=== PATIENT | female | born 1945 | race Caucasian/White ===

== ENCOUNTER → 2016-04-28 | Emergency (ER) | payer MEDICARE, MEDICAID ==
[~2016-04-28] MED LIST: Benzonatate 100 MG CAP ONE
== END ==
LOC: BURERS 17:07
DX: B34.9 Viral infection, unspecified (principal); I10 Essential (primary) hypertension; E11.9 Type 2 diabetes mellitus without complications; E03.9 Hypothyroidism, unspecified; E78.5 Hyperlipidemia, unspecified; Z79.84 Long term (current) use of oral hypoglycemic drugs; Z79.899 Other long term (current) drug therapy
CPT/HCPCS: 99283

== ENCOUNTER 2016-05-16 18:45 | Emergency (ER) | payer MEDICARE, MEDICAID ==
[2016-05-16] MEDS ORDERED: HYDROcodone/Acetaminophen 5/325 mg Tablet ONE (19:20)
--- NOTE | 2016-05-16 22:18 | RAD ---
LEFT HIP TWO VIEWS: Date: 05-16-16 FINDINGS: No fracture, dislocation, or disc space narrowing was seen. There are no significant arthritic thapa ges. The adjacent pubic ring appears intact. IMPRESSION: No acute finding. POS: HOME
--- NOTE | 2016-05-16 23:17 | RAD ---
LUMBAR SPINE THREE VIEWS: Date: 05-16-16 A significant S-shaped lumbar scoliosis is present. No fracture was seen. Degenerative disc diseas e is present at multiple levels, especially L5-S1, L1-2, T12-L1, T11-12, T10-11, and T8-9. The SI j oints are difficult to evaluate due to overlying bowel and fecal material. An oblong density to the right of the L1-2 interspace may just be fecal material in bowel, as I see no such findings on the lateral view. IMPRESSION: Scoliosis with moderate to severe multilevel degenerative disc disease. POS: HOME
== END 2016-05-16 20:20 | disposition home or self-care (01) ==
LOC: BURERS 18:45
DX: S33.5XXA Sprain of ligaments of lumbar spine, initial encounter (principal); E11.9 Type 2 diabetes mellitus without complications; E78.5 Hyperlipidemia, unspecified; I10 Essential (primary) hypertension; Z79.84 Long term (current) use of oral hypoglycemic drugs; Z79.899 Other long term (current) drug therapy; W10.9XXA Fall (on) (from) unspecified stairs and steps, initial encounter
CPT/HCPCS: 72100

== ENCOUNTER 2016-05-31 10:15 | Outpatient (CLI) | payer MEDICARE, MEDICAID | END 2016-05-31 10:16 | disposition home or self-care (01) | LOC: HPCALD 10:15 | PROVIDERS: ATTEND Family Medicine | DX: E03.9 Hypothyroidism, unspecified (principal) | CPT/HCPCS: 36415; 84443 ==

== ENCOUNTER 2016-07-26 09:34 | Outpatient (CLI) | payer MEDICARE, MEDICAID | END 2016-07-26 09:35 | disposition home or self-care (01) | LOC: BURLAB 09:34 | PROVIDERS: ATTEND Physician Assistant Medical | DX: K29.70 Gastritis, unspecified, without bleeding (principal); B96.81 Helicobacter pylori [H. pylori] as the cause of diseases classified elsewhere | CPT/HCPCS: 87338 ==

== ENCOUNTER 2016-11-19 11:52 | Outpatient (CLI) | payer MEDICARE, MEDICAID ==
[2016-11-19 12:56] LABS: ALT (SGPT) 31 U/L (8-55); AST (SGOT) 39 U/L (5-34); Albumin 3.8 g/dL (3.4-4.8); Alkaline Phosphatase 126 U/L (40-150); Anion Gap 13 mmol/L (10-20); BUN (Urea Nitrogen) 12 mg/dL (9.8-20.1); Bilirubin, Total 0.8 mg/dL (0.2-1.2); Calc. Creatinine Clearance 0 mL/min (70-130); Carbon Dioxide 27 mmol/L (23-31); Chloride 105 mmol/L (98-107); Cholesterol 109 mg/dl (< 200 Desired); Estimated GFR-MDRD 65; Globulin 2.9 g/dL (2.4-3.5); Glucose 133 mg/dL (80-115); HDL Cholesterol 36 mg/dL (>60 Neg Risk); LDL Cholesterol, Calculated 53 mg/dL; Potassium 4.2 mmol/L (3.5-5.1); Protein, Total 6.7 g/dL (6.0-8.3); Sodium 141 mmol/L (136-145); Triglycerides 100 mg/dL (Less than 150)
[2016-11-19 13:09] LABS: Hemoglobin A1c 6.2 % (4.0-6.0)
[2016-11-19 14:11] LABS: #Eosinphils 0.1 thou/uL (0.0-0.7); #Monocytes 0.4 thou/uL (0.11-0.59); #Neutrophils 4.9 thou/uL (1.40-6.50); %Basophils 0.4 % (0.0-1.0); %Eosinophils 1.9 % (0.0-10.0); %Lymphocytes 15.8 % (21.0-51.0); %Monocytes 6.7 % (0.0-10.0); %Neutrophils 75.1 % (42.0-75.0); Hemoglobin 12.5 g/dL (12.0-16.0); Mean Corpuscular HGB CONC 31.8 g/dL (32.0-36.0); Mean Platelet Volume 5.7 fL (7.4-10.4); Platelet Count 113 thou/uL (130-400); RBC Distribution Width 14.5 % (11.5-14.5); Red Blood Cell (RBC) Count 4.47 mill/uL (4.20-5.40); White Blood Cell (WBC) Count 6.6 thou/uL (4.8-10.8)
[2016-11-19 14:35] LABS: MDiff Complete? YES; Manual Diff?? NO
== END 2016-11-19 11:53 | disposition home or self-care (01) ==
LOC: HPCALD 11:52
PROVIDERS: ATTEND Family Medicine
DX: E78.2 Mixed hyperlipidemia (principal); E03.9 Hypothyroidism, unspecified; E11.9 Type 2 diabetes mellitus without complications
CPT/HCPCS: 36415; 80053; 80061; 83036; 84443; 85025

== ENCOUNTER 2016-11-26 08:58 | Outpatient (CLI) | payer MEDICARE, MEDICAID ==
--- NOTE | 2016-11-26 17:00 | ULT ---
RIGHT UPPER QUADRANT ULTRASOUND: 11/26/16 Ultrasonography of the right upper quadrant was performed for evaluation of elevated liver function tests. The liver is seen poorly due to bowel gas. It is mildly enlarged, measuring 17 cm in oblique sagitta l dimension. No masses or dilated ducts were appreciated. Portal venous flow seems to be towards the liver. The gallbladder contains a large gallstone in the fundus. The wall is slightly thick at 5 mm the common bile duct is borderline in caliber at 6 mm. The right kidney was 10.3 cm long and appear ed normal. The head and proximal body of the pancreas appear normal, but the more distal portions we re not seen well. IMPRESSION: 1. Mild hepatomegaly. 2. Gallstone with slight wall thickening. 3. Borderline size of common bile duct. POS: HOME
== END 2016-11-26 08:59 | disposition home or self-care (01) ==
LOC: BURULT 08:58
PROVIDERS: ATTEND Family Medicine
DX: D69.6 Thrombocytopenia, unspecified (principal); R74.0 Nonspecific elevation of levels of transaminase and lactic acid dehydrogenase [LDH]; R16.0 Hepatomegaly, not elsewhere classified; K80.80 Other cholelithiasis without obstruction
CPT/HCPCS: 76705; 87338

== ENCOUNTER 2019-01-25 12:30 | Outpatient (CLI) | payer MEDICARE, MEDICAID ==
[2019-01-25 16:56] LABS: #Eosinphils 0.1 thou/uL (0.0-0.7); #Lymphocytes 1.1 thou/uL (1.20-3.40); #Monocytes 0.6 thou/uL (0.11-0.59); %Basophils 0.2 % (0.0-1.0); %Eosinophils 1.3 % (0.0-10.0); %Lymphocytes 16.4 % (21.0-51.0); %Monocytes 8.6 % (0.0-10.0); %Neutrophils 73.6 % (42.0-75.0); Hemoglobin 10.8 g/dL (12.0-16.0); Mean Corpuscular Hemoglobin 28.2 pg (27.0-31.0); Mean Platelet Volume 9.1 fL (7.4-10.4); Platelet Count 84 thou/uL (130-400); RBC Distribution Width 16.9 % (11.5-14.5); Red Blood Cell (RBC) Count 3.83 mill/uL (4.20-5.40); White Blood Cell (WBC) Count 6.8 thou/uL (4.8-10.8)
[2019-01-25 16:57] LABS: ALT (SGPT) 16 U/L (8-55); AST (SGOT) 27 U/L (5-34); Albumin 4.1 g/dL (3.4-4.8); Alkaline Phosphatase 139 U/L (40-110); Anion Gap 14 mmol/L (10-20); BUN (Urea Nitrogen) 17 mg/dL (9.8-20.1); Bilirubin, Total 0.8 mg/dL (0.2-1.2); Calc. Creatinine Clearance 0 mL/min (70-130); Calcium 10.3 mg/dL (7.8-10.44); Carbon Dioxide 19 mmol/L (23-31); Chloride 110 mmol/L (98-107); Estimated GFR-MDRD 63; Globulin 3.1 g/dL (2.4-3.5); Glucose 71 mg/dL (83-110); Magnesium 1.6 mg/dL (1.6-2.6); Potassium 3.7 mmol/L (3.5-5.1); Protein, Total 7.2 g/dL (6.0-8.3); Sodium 139 mmol/L (136-145)
--- NOTE | 2019-01-25 17:39 | RAD ---
CHEST TWO VIEWS: 01/25/19 Comparison is made with a 12/30/18 study. The heart is upper normal to slightly enlarged, but no dif ferent than before. Congestion and effusion seen previously have all cleared. The lungs are now clear . At most, there may even most minor prominence of the upper lobe vessels, but there is certainly no sign of pneumonia at the moment. IMPRESSION: Overall improvement since the 12/30/18 study. POS: HOME
== END 2019-01-25 12:31 | disposition home or self-care (01) ==
LOC: BURRAD 12:30
PROVIDERS: ATTEND Family Medicine
DX: I50.32 Chronic diastolic (congestive) heart failure (principal); D64.9 Anemia, unspecified; E83.42 Hypomagnesemia; J18.9 Pneumonia, unspecified organism; J96.01 Acute respiratory failure with hypoxia; J44.1 Chronic obstructive pulmonary disease with (acute) exacerbation; B95.5 Unspecified streptococcus as the cause of diseases classified elsewhere
CPT/HCPCS: 36415; 71046; 80053; 83735; 83880; 85025

== ENCOUNTER 2020-10-21 14:13 | Inpatient (IN) | payer OTHER, MEDICARE, MEDICAID ==
[2020-10-21] MEDS ORDERED: Ondansetron ODT 4 MG TAB ONE ×3 (14:15→15:44)
[2020-10-21] MEDS ORDERED: Morphine 4 MG/ML VIAL ONE (15:16)
[2020-10-21] MEDS ORDERED: Ondansetron PF 4 MG/2 ML Vial ONE (15:42)
[2020-10-21] MEDS ORDERED: HYDROcodone/Acetaminophen 5/325 mg Tablet ONE (15:58)
[2020-10-21] MEDS ORDERED: traMADol HCl 50 MG TAB ONE (15:59)
[2020-10-21 17:06] LABS: #Lymphocytes 0.5 thou/uL (1.20-3.40); #Monocytes 0.3 thou/uL (0.11-0.59); #Neutrophils 5.3 thou/uL (1.40-6.50); %Basophils 0.5 % (0.0-1.0); %Eosinophils 0.3 % (0.0-10.0); %Lymphocytes 7.5 % (21.0-51.0); %Monocytes 4.9 % (0.0-10.0); %Neutrophils 86.7 % (42.0-75.0); ALT (SGPT) 17 U/L (8-55); AST (SGOT) 19 U/L (5-34); Albumin 3.3 g/dL (3.4-4.8); Alkaline Phosphatase 142 U/L (40-110); Anion Gap 12 mmol/L (10-20); BUN (Urea Nitrogen) 21 mg/dL (9.8-20.1); Bilirubin, Total 1.3 mg/dL (0.2-1.2); Calc. Creatinine Clearance 0 mL/min (70-130); Calcium 9.8 mg/dL (7.8-10.44); Carbon Dioxide 21 mmol/L (23-31); Chloride 110 mmol/L (98-107); Globulin 3.3 g/dL (2.4-3.5); Glucose 269 mg/dL (83-110); Hemoglobin 10.2 g/dL (12.0-16.0); Large Platelets SLIGHT; MDiff Complete? YES; Mean Corpuscular HGB CONC 30.8 g/dL (32.0-36.0); Mean Corpuscular Hemoglobin 26.9 pg (27.0-31.0); Mean Corpuscular Volume 87.3 fL (78.0-98.0); Mean Platelet Volume 7.7 fL (7.4-10.4); Platelet Count 65 thou/uL (130-400); Potassium 4.6 mmol/L (3.5-5.1); Protein, Total 6.6 g/dL (5.8-8.1); Sodium 138 mmol/L (136-145); White Blood Cell (WBC) Count 6.1 thou/uL (4.8-10.8)
[2020-10-21] MEDS ORDERED: Acetaminophen 500 MG TAB PO PRN (19:22)
[2020-10-21] MEDS: Atorvastatin Calcium 10 MG TAB PO SCH (21:21)
[2020-10-22 01:13] LABS: SARS-CoV-2 NAA Rapid Test Not Detected (NotDetected)
[2020-10-22] MEDS: Levothyroxine Sodium 100 MCG TAB PO SCH (05:52)
[2020-10-22] MEDS: traMADol HCl 50 MG TAB PO PRN (08:36)
[2020-10-22] MEDS: Lisinopril 10 MG TAB PO SCH (08:37)
[2020-10-22] MEDS: Furosemide 40 MG TAB PO SCH (08:38)
[2020-10-22] MEDS: Potassium Chloride 20 MEQ TAB PO SCH (08:39)
[2020-10-22] MEDS: Enoxaparin Sodium 40 MG/0.4 ML SYRINGE SC SCH (08:40)
[2020-10-22] MEDS: VERAPAMIL HCL 180 MG PO SCH (08:41)
[2020-10-22] MEDS: ACETAZOLAMIDE 250 MG PO SCH (08:41)
[2020-10-22] MEDS: Atorvastatin Calcium 10 MG TAB PO SCH (22:44)
[2020-10-22] MEDS ORDERED: Dextrose 5% in Water 1,000 ML IV PRN (23:45)
[2020-10-22] MEDS ORDERED: Dextrose 50% Abboject 50 ML SYRINGE IVP PRN (23:45)
[2020-10-22] MEDS: Insulin Regular 300 UNITS/3 ML VIAL SC PRN (23:57)
[2020-10-23] MEDS: traMADol HCl 50 MG TAB PO PRN ×2 (04:49→21:06)
[2020-10-23] MEDS: Levothyroxine Sodium 100 MCG TAB PO SCH (04:51)
[2020-10-23] MEDS: Insulin Regular 300 UNITS/3 ML VIAL SC PRN ×4 (08:33→21:07)
[2020-10-23] MEDS: Potassium Chloride 20 MEQ TAB PO SCH (08:44)
[2020-10-23] MEDS: Lisinopril 10 MG TAB PO SCH (08:45)
[2020-10-23] MEDS: Furosemide 40 MG TAB PO SCH (08:45)
[2020-10-23] MEDS: Enoxaparin Sodium 40 MG/0.4 ML SYRINGE SC SCH ×2 (08:46→09:03)
[2020-10-23] MEDS: ACETAZOLAMIDE 250 MG PO SCH (09:41)
[2020-10-23] MEDS: VERAPAMIL HCL 180 MG PO SCH (09:42)
[2020-10-23 14:52] LABS: Bilirubin Negative (Negative); Blood, Urine Trace (Negative); Clarity Cloudy (Clear); Glucose, Urine (Dipstick) >=1000 mg/dL (Negative); Ketone, Urine Negative (Negative); Leukocyte Small (Negative); Nitrite Negative (Negative); Protein, Urine (Dipstick) Negative (Neg-Trace)
[2020-10-23 15:06] LABS: RBC/HPF 0-3 HPF (0-3); WBC/HPF Greater than 50 HPF (0-3)
[2020-10-23 15:07] LABS: Bacteria/HPF 3+ HPF (None Seen); Epithelial Cast 0-3 LPF (None Seen)
[2020-10-23] MEDS: Atorvastatin Calcium 10 MG TAB PO SCH (21:06)
[2020-10-24] MEDS: Levothyroxine Sodium 100 MCG TAB PO SCH (05:32)
[2020-10-24 05:57] LABS: Hemoglobin 9.2 g/dL (12.0-16.0); Platelet Count 50 thou/uL (130-400)
[2020-10-24] MEDS: Insulin Regular 300 UNITS/3 ML VIAL SC PRN ×4 (09:10→20:35)
[2020-10-24] MEDS: Enoxaparin Sodium 40 MG/0.4 ML SYRINGE SC SCH (09:12)
[2020-10-24] MEDS: Furosemide 40 MG TAB PO SCH (09:13)
[2020-10-24] MEDS: Potassium Chloride 20 MEQ TAB PO SCH (09:13)
[2020-10-24] MEDS: Lisinopril 10 MG TAB PO SCH (09:15)
[2020-10-24] MEDS: traMADol HCl 50 MG TAB PO PRN (10:28)
[2020-10-24] MEDS: VERAPAMIL HCL 180 MG PO SCH (10:33)
[2020-10-24] MEDS: ACETAZOLAMIDE 250 MG PO SCH (10:33)
[2020-10-24] MEDS: Atorvastatin Calcium 10 MG TAB PO SCH (20:29)
[2020-10-24] MEDS: Ciprofloxacin 500 MG TAB PO SCH (20:30)
[2020-10-25] MEDS: Ciprofloxacin 500 MG TAB PO SCH ×2 (06:00→20:50)
[2020-10-25] MEDS: Levothyroxine Sodium 100 MCG TAB PO SCH (06:00)
[2020-10-25] MEDS: Enoxaparin Sodium 40 MG/0.4 ML SYRINGE SC SCH (08:19)
[2020-10-25] MEDS: Insulin Regular 300 UNITS/3 ML VIAL SC PRN ×3 (08:20→20:54)
[2020-10-25] MEDS: Lisinopril 10 MG TAB PO SCH (08:21)
[2020-10-25] MEDS: Furosemide 40 MG TAB PO SCH (08:22)
[2020-10-25] MEDS: ACETAZOLAMIDE 250 MG PO SCH (08:23)
[2020-10-25] MEDS: VERAPAMIL HCL 180 MG PO SCH (08:24)
[2020-10-25] MEDS: Polyethylene Glycol 3350 17 GM Packet PO PRN (09:15)
[2020-10-25] MEDS: Potassium Chloride 20 MEQ TAB PO SCH (09:16)
[2020-10-25] MEDS: traMADol HCl 50 MG TAB PO PRN (17:46)
[2020-10-25] MEDS: Atorvastatin Calcium 10 MG TAB PO SCH (20:50)
[2020-10-25] MEDS ORDERED: Lantus 1000 UNITS/10 ML VIAL SC SCH (21:00)
[2020-10-26] MEDS: Ciprofloxacin 500 MG TAB PO SCH ×2 (05:00→20:40)
[2020-10-26] MEDS: Levothyroxine Sodium 100 MCG TAB PO SCH (05:00)
[2020-10-26] MEDS: Enoxaparin Sodium 40 MG/0.4 ML SYRINGE SC SCH (09:15)
[2020-10-26] MEDS: Lisinopril 10 MG TAB PO SCH (09:17)
[2020-10-26] MEDS: Furosemide 40 MG TAB PO SCH (09:17)
[2020-10-26] MEDS: Potassium Chloride 20 MEQ TAB PO SCH (09:17)
[2020-10-26] MEDS: Insulin Regular 300 UNITS/3 ML VIAL SC PRN ×4 (09:18→20:43)
[2020-10-26] MEDS: ACETAZOLAMIDE 250 MG PO SCH (09:29)
[2020-10-26] MEDS: VERAPAMIL HCL 180 MG PO SCH (09:29)
[2020-10-26] MEDS: Polyethylene Glycol 3350 17 GM Packet PO PRN (10:56)
[2020-10-26] MEDS: traMADol HCl 50 MG TAB PO PRN (19:23)
[2020-10-26] MEDS: Atorvastatin Calcium 10 MG TAB PO SCH (20:40)
[2020-10-26] MEDS: Lantus 1000 UNITS/10 ML VIAL SC SCH (20:41)
[2020-10-27 05:36] LABS: Hemoglobin 9.3 g/dL (12.0-16.0); Platelet Count 67 thou/uL (130-400)
[2020-10-27] MEDS ORDERED: Ciprofloxacin 500 MG TAB ONE (05:42)
[2020-10-27] MEDS: Levothyroxine Sodium 100 MCG TAB PO SCH (05:47)
[2020-10-27] MEDS: Ciprofloxacin 500 MG TAB PO SCH ×2 (05:47→22:38)
[2020-10-27] MEDS: Lisinopril 10 MG TAB PO SCH (09:12)
[2020-10-27] MEDS: Furosemide 40 MG TAB PO SCH (09:12)
[2020-10-27] MEDS: Potassium Chloride 20 MEQ TAB PO SCH (09:12)
[2020-10-27] MEDS: Insulin Regular 300 UNITS/3 ML VIAL SC PRN ×4 (09:13→22:42)
[2020-10-27] MEDS: Enoxaparin Sodium 40 MG/0.4 ML SYRINGE SC SCH (09:13)
[2020-10-27] MEDS: traMADol HCl 50 MG TAB PO PRN (10:42)
[2020-10-27] MEDS: VERAPAMIL HCL 180 MG PO SCH (10:43)
[2020-10-27] MEDS: ACETAZOLAMIDE 250 MG PO SCH (10:43)
[2020-10-27] MEDS: Atorvastatin Calcium 10 MG TAB PO SCH (22:38)
[2020-10-27] MEDS: Lantus 1000 UNITS/10 ML VIAL SC SCH (22:39)
[2020-10-28] MEDS: Ciprofloxacin 500 MG TAB PO SCH ×2 (05:24→20:33)
[2020-10-28] MEDS: Levothyroxine Sodium 100 MCG TAB PO SCH (05:24)
[2020-10-28] MEDS: Lisinopril 10 MG TAB PO SCH (08:58)
[2020-10-28] MEDS: Furosemide 40 MG TAB PO SCH (08:58)
[2020-10-28] MEDS: Enoxaparin Sodium 40 MG/0.4 ML SYRINGE SC SCH (08:58)
[2020-10-28] MEDS: ACETAZOLAMIDE 250 MG PO SCH (08:59)
[2020-10-28] MEDS: Potassium Chloride 20 MEQ TAB PO SCH (08:59)
[2020-10-28] MEDS: VERAPAMIL HCL 180 MG PO SCH (08:59)
[2020-10-28] MEDS: Insulin Regular 300 UNITS/3 ML VIAL SC PRN ×4 (09:01→20:34)
[2020-10-28] MEDS: traMADol HCl 50 MG TAB PO PRN (09:01)
[2020-10-28] MEDS: Atorvastatin Calcium 10 MG TAB PO SCH (20:33)
[2020-10-28] MEDS: Lantus 1000 UNITS/10 ML VIAL SC SCH (20:34)
[2020-10-29] MEDS: Ciprofloxacin 500 MG TAB PO SCH (05:16)
[2020-10-29] MEDS: Levothyroxine Sodium 100 MCG TAB PO SCH (05:16)
[2020-10-29] MEDS: Lisinopril 10 MG TAB PO SCH (08:14)
[2020-10-29] MEDS: Furosemide 40 MG TAB PO SCH (08:14)
[2020-10-29] MEDS: Potassium Chloride 20 MEQ TAB PO SCH (08:14)
[2020-10-29] MEDS: VERAPAMIL HCL 180 MG PO SCH (08:16)
[2020-10-29] MEDS: ACETAZOLAMIDE 250 MG PO SCH (08:16)
[2020-10-29] MEDS: Insulin Regular 300 UNITS/3 ML VIAL SC PRN ×4 (08:16→21:14)
[2020-10-29] MEDS: traMADol HCl 50 MG TAB PO PRN (12:15)
[2020-10-29] MEDS: Enoxaparin Sodium 40 MG/0.4 ML SYRINGE SC SCH (12:16)
[2020-10-29] MEDS: Lantus 1000 UNITS/10 ML VIAL SC SCH (21:11)
[2020-10-29] MEDS: Atorvastatin Calcium 10 MG TAB PO SCH (21:12)
[2020-10-30 05:07] LABS: Platelet Count 65 thou/uL (130-400)
[2020-10-30] MEDS: Levothyroxine Sodium 100 MCG TAB PO SCH (05:27)
[2020-10-30] MEDS: Potassium Chloride 20 MEQ TAB PO SCH (09:15)
[2020-10-30] MEDS: Lisinopril 10 MG TAB PO SCH (09:15)
[2020-10-30] MEDS: Enoxaparin Sodium 40 MG/0.4 ML SYRINGE SC SCH (09:15)
[2020-10-30] MEDS: Furosemide 40 MG TAB PO SCH (09:16)
[2020-10-30] MEDS: VERAPAMIL HCL 180 MG PO SCH (09:21)
[2020-10-30] MEDS: ACETAZOLAMIDE 250 MG PO SCH (09:21)
[2020-10-30] MEDS: Insulin Regular 300 UNITS/3 ML VIAL SC PRN ×4 (09:22→21:46)
[2020-10-30] MEDS: traMADol HCl 50 MG TAB PO PRN (09:39)
[2020-10-30] MEDS: Atorvastatin Calcium 10 MG TAB PO SCH (21:46)
[2020-10-30] MEDS: Lantus 1000 UNITS/10 ML VIAL SC SCH (21:46)
[2020-10-31] MEDS: Levothyroxine Sodium 100 MCG TAB PO SCH (05:33)
[2020-10-31] MEDS: Potassium Chloride 20 MEQ TAB PO SCH (10:00)
[2020-10-31] MEDS: Lisinopril 10 MG TAB PO SCH (10:00)
[2020-10-31] MEDS: Enoxaparin Sodium 40 MG/0.4 ML SYRINGE SC SCH (10:00)
[2020-10-31] MEDS: Furosemide 40 MG TAB PO SCH (10:01)
[2020-10-31] MEDS: ACETAZOLAMIDE 250 MG PO SCH (10:06)
[2020-10-31] MEDS: VERAPAMIL HCL 180 MG PO SCH (10:08)
[2020-10-31] MEDS: Insulin Regular 300 UNITS/3 ML VIAL SC PRN ×4 (10:09→21:50)
[2020-10-31] MEDS: traMADol HCl 50 MG TAB PO PRN (14:01)
[2020-10-31] MEDS: Lantus 1000 UNITS/10 ML VIAL SC SCH (21:50)
[2020-10-31] MEDS: Atorvastatin Calcium 10 MG TAB PO SCH (21:50)
[2020-11-01] MEDS: Levothyroxine Sodium 100 MCG TAB PO SCH (05:31)
[2020-11-01] MEDS: Furosemide 40 MG TAB PO SCH (08:33)
[2020-11-01] MEDS: Insulin Regular 300 UNITS/3 ML VIAL SC PRN ×5 (08:33→22:16)
[2020-11-01] MEDS: Enoxaparin Sodium 40 MG/0.4 ML SYRINGE SC SCH (08:34)
[2020-11-01] MEDS: Potassium Chloride 20 MEQ TAB PO SCH (08:35)
[2020-11-01] MEDS: ACETAZOLAMIDE 250 MG PO SCH (08:36)
[2020-11-01] MEDS: VERAPAMIL HCL 180 MG PO SCH (08:37)
[2020-11-01] MEDS: Lisinopril 10 MG TAB PO SCH (08:40)
[2020-11-01] MEDS: Atorvastatin Calcium 10 MG TAB PO SCH (22:15)
[2020-11-01] MEDS: Lantus 1000 UNITS/10 ML VIAL SC SCH (22:16)
[2020-11-02] MEDS: Levothyroxine Sodium 100 MCG TAB PO SCH (05:03)
[2020-11-02 05:40] LABS: Hemoglobin 9.3 g/dL (12.0-16.0); Platelet Count 80 thou/uL (130-400)
[2020-11-02] MEDS: traMADol HCl 50 MG TAB PO PRN (09:26)
[2020-11-02] MEDS: Lisinopril 10 MG TAB PO SCH (09:28)
[2020-11-02] MEDS: Enoxaparin Sodium 40 MG/0.4 ML SYRINGE SC SCH (09:29)
[2020-11-02] MEDS: Potassium Chloride 20 MEQ TAB PO SCH (09:30)
[2020-11-02] MEDS: Furosemide 40 MG TAB PO SCH (09:33)
[2020-11-02] MEDS: VERAPAMIL HCL 180 MG PO SCH (09:34)
[2020-11-02] MEDS: ACETAZOLAMIDE 250 MG PO SCH (09:35)
[2020-11-02] MEDS: Insulin Regular 300 UNITS/3 ML VIAL SC PRN ×3 (12:24→20:37)
[2020-11-02] MEDS: Lantus 1000 UNITS/10 ML VIAL SC SCH (20:38)
[2020-11-02] MEDS: Atorvastatin Calcium 10 MG TAB PO SCH (20:38)
[2020-11-03] MEDS: Levothyroxine Sodium 100 MCG TAB PO SCH (05:32)
[2020-11-03] MEDS: Lisinopril 10 MG TAB PO SCH (08:49)
[2020-11-03] MEDS: Furosemide 40 MG TAB PO SCH (08:49)
[2020-11-03] MEDS: Enoxaparin Sodium 40 MG/0.4 ML SYRINGE SC SCH (08:56)
[2020-11-03] MEDS: Potassium Chloride 20 MEQ TAB PO SCH (08:56)
[2020-11-03] MEDS: Insulin Regular 300 UNITS/3 ML VIAL SC PRN ×4 (08:59→21:02)
[2020-11-03] MEDS: VERAPAMIL HCL 180 MG PO SCH (09:01)
[2020-11-03] MEDS: ACETAZOLAMIDE 250 MG PO SCH (09:01)
[2020-11-03] MEDS: traMADol HCl 50 MG TAB PO PRN ×2 (11:31→20:57)
[2020-11-03] MEDS: Lantus 1000 UNITS/10 ML VIAL SC SCH (20:56)
[2020-11-03] MEDS: Atorvastatin Calcium 10 MG TAB PO SCH (20:57)
[2020-11-04 01:19] VITALS: BMI 41.8
[2020-11-04] MEDS: Levothyroxine Sodium 100 MCG TAB PO SCH (05:21)
[2020-11-04] MEDS: Furosemide 40 MG TAB PO SCH (09:27)
[2020-11-04] MEDS: ACETAZOLAMIDE 250 MG PO SCH (09:28)
[2020-11-04] MEDS: Lisinopril 10 MG TAB PO SCH (09:28)
[2020-11-04] MEDS: Potassium Chloride 20 MEQ TAB PO SCH (09:28)
[2020-11-04] MEDS: Enoxaparin Sodium 40 MG/0.4 ML SYRINGE SC SCH (09:29)
[2020-11-04] MEDS: VERAPAMIL HCL 180 MG PO SCH (09:29)
[2020-11-04] MEDS: Insulin Regular 300 UNITS/3 ML VIAL SC PRN ×4 (09:30→23:11)
[2020-11-04] MEDS: traMADol HCl 50 MG TAB PO PRN (12:52)
[2020-11-04] MEDS: Lantus 1000 UNITS/10 ML VIAL SC SCH (23:10)
[2020-11-04] MEDS: Atorvastatin Calcium 10 MG TAB PO SCH (23:10)
[2020-11-05] MEDS: Levothyroxine Sodium 100 MCG TAB PO SCH (05:39)
[2020-11-05 05:59] LABS: Hemoglobin 9.9 g/dL (12.0-16.0); Platelet Count 72 thou/uL (130-400)
[2020-11-05] MEDS: VERAPAMIL HCL 180 MG PO SCH ×2 (08:24→12:23)
[2020-11-05] MEDS: Potassium Chloride 20 MEQ TAB PO SCH (08:28)
[2020-11-05] MEDS: Lisinopril 10 MG TAB PO SCH (08:28)
[2020-11-05] MEDS: Insulin Regular 300 UNITS/3 ML VIAL SC PRN ×4 (08:29→21:33)
[2020-11-05] MEDS: Enoxaparin Sodium 40 MG/0.4 ML SYRINGE SC SCH (08:29)
[2020-11-05] MEDS: traMADol HCl 50 MG TAB PO PRN ×2 (08:36→14:12)
[2020-11-05] MEDS: ACETAZOLAMIDE 250 MG PO SCH (12:24)
[2020-11-05] MEDS: Furosemide 20 MG TAB PO SCH (12:25)
[2020-11-05] MEDS: Atorvastatin Calcium 10 MG TAB PO SCH (20:59)
[2020-11-05] MEDS: Lantus 1000 UNITS/10 ML VIAL SC SCH (21:30)
[2020-11-06] MEDS: Levothyroxine Sodium 100 MCG TAB PO SCH (05:07)
[2020-11-06] MEDS: Potassium Chloride 20 MEQ TAB PO SCH (09:07)
[2020-11-06] MEDS: Enoxaparin Sodium 40 MG/0.4 ML SYRINGE SC SCH (09:07)
[2020-11-06] MEDS: Lisinopril 10 MG TAB PO SCH (09:07)
[2020-11-06] MEDS: Furosemide 20 MG TAB PO SCH (09:08)
[2020-11-06] MEDS: Insulin Regular 300 UNITS/3 ML VIAL SC PRN ×3 (09:20→17:39)
[2020-11-06] MEDS: ACETAZOLAMIDE 250 MG PO SCH (09:22)
[2020-11-06] MEDS: VERAPAMIL HCL 180 MG PO SCH (09:23)
[2020-11-06] MEDS: traMADol HCl 50 MG TAB PO PRN (18:36)
[2020-11-06 18:59] VITALS: BP 120/60; TEMP 98.1
== END 2020-11-06 19:00 | disposition home or self-care (01) | DRG 563 ==
LOC: BURERS 14:13 → BURMED 16:40
PROVIDERS: ADMIT Family Medicine; ATTEND Family Medicine
DX: S42.292A Other displaced fracture of upper end of left humerus, initial encounter for closed fracture (principal); Z68.41 Body mass index [BMI] 40.0-44.9, adult; N39.0 Urinary tract infection, site not specified; S76.012A Strain of muscle, fascia and tendon of left hip, initial encounter; W07.XXXA Fall from chair, initial encounter; E66.9 Obesity, unspecified; J44.9 Chronic obstructive pulmonary disease, unspecified; I11.0 Hypertensive heart disease with heart failure; I50.9 Heart failure, unspecified; E78.5 Hyperlipidemia, unspecified; D64.9 Anemia, unspecified; D69.6 Thrombocytopenia, unspecified; E03.9 Hypothyroidism, unspecified; S42.252A Displaced fracture of greater tuberosity of left humerus, initial encounter for closed fracture; I89.0 Lymphedema, not elsewhere classified; R53.81 Other malaise; Z20.822 Contact with and (suspected) exposure to COVID-19; E11.9 Type 2 diabetes mellitus without complications; B96.1 Klebsiella pneumoniae [K. pneumoniae] as the cause of diseases classified elsewhere; Z90.89 Acquired absence of other organs; Z98.890 Other specified postprocedural states; Z88.5 Allergy status to narcotic agent; Z88.0 Allergy status to penicillin; Z88.2 Allergy status to sulfonamides; Z88.8 Allergy status to other drugs, medicaments and biological substances; Z79.899 Other long term (current) drug therapy; Z85.41 Personal history of malignant neoplasm of cervix uteri; I25.2 Old myocardial infarction; Z86.718 Personal history of other venous thrombosis and embolism; Z98.51 Tubal ligation status
CPT/HCPCS: 36415; 36416; 70450; 71045; 72125; 80053; 81001; 82274; 82565; 85014; 85018; 85025; 85049; 87077; 87086; 87186; 96372; J1650; J1815; J2270; J2405; Q0162; U0002

== ENCOUNTER 2021-08-14 20:28 | Emergency (ER) | payer MEDICARE, OTHER ==
[2021-08-14 21:56] LABS: #Lymphocytes 0.6 thou/uL (1.20-3.40); #Monocytes 0.2 thou/uL (0.11-0.59); #Neutrophils 2.2 thou/uL (1.40-6.50); %Basophils 0.9 % (0.0-1.0); %Eosinophils 0.9 % (0.0-10.0); %Lymphocytes 19.1 % (21.0-51.0); %Monocytes 7.9 % (0.0-10.0); %Neutrophils 71.2 % (42.0-75.0); Hemoglobin 10.4 g/dL (12.0-16.0); Mean Corpuscular HGB CONC 32.1 g/dL (32.0-36.0); Mean Corpuscular Hemoglobin 28.4 pg (27.0-31.0); Mean Corpuscular Volume 88.6 fL (78.0-98.0); Mean Platelet Volume 7.5 fL (7.4-10.4); Platelet Count 46 thou/uL (130-400); RBC Distribution Width 16.9 % (11.5-14.5); Red Blood Cell (RBC) Count 3.66 mill/uL (4.20-5.40)
[2021-08-14 22:04] LABS: CRP (Inflammatory) 2.88 mg/dL (= or < 0.5)
[2021-08-14 22:06] LABS: ALT (SGPT) 12 U/L (8-55); AST (SGOT) 21 U/L (5-34); Albumin 3.8 g/dL (3.4-4.8); Alkaline Phosphatase 94 U/L (40-110); Anion Gap 14 mmol/L (10-20); BUN (Urea Nitrogen) 17 mg/dL (9.8-20.1); Bilirubin, Total 1.8 mg/dL (0.2-1.2); Calc. Creatinine Clearance 0 mL/min (70-130); Calcium 9.7 mg/dL (7.8-10.44); Carbon Dioxide 17 mmol/L (23-31); Chloride 115 mmol/L (98-107); Globulin 3.2 g/dL (2.4-3.5); Glucose 116 mg/dL (83-110); Sodium 142 mmol/L (136-145)
[2021-08-14 22:07] LABS: Bilirubin Negative (Negative); Blood, Urine Negative (Negative); Clarity Slightly Cloudy (Clear); Glucose, Urine (Dipstick) Negative (Negative); Ketone, Urine 15 mg/dL (Negative); Leukocyte Trace (Negative); Nitrite Positive (Negative); Protein, Urine (Dipstick) Negative (Neg-Trace); pH, Urine 5.5 (5.0-9.0)
[2021-08-14 22:11] LABS: Anisocytosis SLIGHT = 6-15 cells (100X) (0-5/hpf); MDiff Complete? YES; Platelet Morphology Comment Appears Decreased
[2021-08-14 22:14] LABS: Bacteria/HPF 4+ HPF (None Seen); RBC/HPF None Seen HPF (0-3); Squamous Epithelial None Seen HPF (0-3); WBC/HPF 0-3 HPF (0-3)
[2021-08-14] MEDS ORDERED: HYDROcodone/Acetaminophen 5/325 mg Tablet ONE (22:27)
== END 2021-08-14 22:15 | disposition short-term general hospital (02) ==
LOC: BURERS 20:28
DX: L03.115 Cellulitis of right lower limb (principal); I50.9 Heart failure, unspecified; E11.9 Type 2 diabetes mellitus without complications; J44.9 Chronic obstructive pulmonary disease, unspecified; M19.90 Unspecified osteoarthritis, unspecified site; E66.9 Obesity, unspecified; Z68.45 Body mass index [BMI] 70 or greater, adult; Z79.899 Other long term (current) drug therapy
CPT/HCPCS: 36415; 71045; 72100; 80053; 81003; 81015; 82550; 83605; 83880; 85025; 86140; 87040; 87077; 87086; 87186; 96374; J1956

== ENCOUNTER 2021-08-28 16:59 | Emergency (ER) | payer MEDICARE, OTHER ==
[2021-08-28 18:17] LABS: Bilirubin Negative (Negative); Blood, Urine Negative (Negative); Clarity Clear (Clear); Glucose, Urine (Dipstick) Negative (Negative); Ketone, Urine Negative (Negative); Leukocyte Negative (Negative); Nitrite Negative (Negative); Protein, Urine (Dipstick) Negative (Neg-Trace); Specific Gravity, Urine 1.025 (1.005-1.030); pH, Urine 5.5 (5.0-9.0)
[2021-08-28 18:20] LABS: ALT (SGPT) 19 U/L (8-55); AST (SGOT) 31 U/L (5-34); Albumin 3.3 g/dL (3.4-4.8); Alkaline Phosphatase 85 U/L (40-110); Anion Gap 15 mmol/L (10-20); BUN (Urea Nitrogen) 20 mg/dL (9.8-20.1); Bilirubin, Total 0.9 mg/dL (0.2-1.2); Calc. Creatinine Clearance 0 mL/min (70-130); Calcium 9.9 mg/dL (7.8-10.44); Carbon Dioxide 19 mmol/L (23-31); Chloride 111 mmol/L (98-107); Globulin 2.5 g/dL (2.4-3.5); Glucose 103 mg/dL (83-110); Potassium 4.5 mmol/L (3.5-5.1); Protein, Total 5.8 g/dL (5.8-8.1); Sodium 140 mmol/L (136-145)
[2021-08-28 18:22] LABS: #Eosinphils 0.1 thou/uL (0.0-0.7); #Lymphocytes 0.7 thou/uL (1.20-3.40); #Monocytes 0.3 thou/uL (0.11-0.59); #Neutrophils 2.2 thou/uL (1.40-6.50); %Basophils 0.8 % (0.0-1.0); %Monocytes 9.2 % (0.0-10.0); %Neutrophils 67.9 % (42.0-75.0); Anisocytosis SLIGHT = 6-15 cells (100X) (0-5/hpf); Hemoglobin 8.9 g/dL (12.0-16.0); MDiff Complete? YES; Mean Corpuscular HGB CONC 31.5 g/dL (32.0-36.0); Mean Corpuscular Hemoglobin 28.7 pg (27.0-31.0); Mean Corpuscular Volume 91.2 fL (78.0-98.0); Mean Platelet Volume 6.2 fL (7.4-10.4); Ovalocytes SLIGHT = 2-5 cells (100X) (0-1/hpf); Platelet Count 47 thou/uL (130-400); Platelet Morphology Comment Appears Decreased; Poikilocytosis SLIGHT = 6-15 cells (100X) (0-5/hpf); RBC Distribution Width 17.5 % (11.5-14.5); RBC Morphology PT HAS HX OF LOW PLATELET COUNT; Red Blood Cell (RBC) Count 3.11 mill/uL (4.20-5.40); Tear Drops SLIGHT = 2-5 cells (100X) (0-1/hpf); White Blood Cell (WBC) Count 3.2 thou/uL (4.8-10.8)
[2021-08-28] MEDS ORDERED: HYDROcodone/Acetaminophen 5/325 mg Tablet ONE (22:30)
== END 2021-08-28 22:50 | disposition home or self-care (01) ==
LOC: BURERS 16:59
DX: M25.551 Pain in right hip (principal); E11.9 Type 2 diabetes mellitus without complications; J44.9 Chronic obstructive pulmonary disease, unspecified; M19.90 Unspecified osteoarthritis, unspecified site; E66.9 Obesity, unspecified; W19.XXXA Unspecified fall, initial encounter; Z68.45 Body mass index [BMI] 70 or greater, adult; Z79.84 Long term (current) use of oral hypoglycemic drugs; Z79.899 Other long term (current) drug therapy
CPT/HCPCS: 36415; 71045; 74176; 80053; 81003; 83880; 84484; 85025; 93005

== ENCOUNTER 2021-12-04 15:09 | Emergency (ER) | payer MEDICARE, OTHER ==
[2021-12-04 16:12] LABS: #Lymphocytes 0.8 thou/uL (1.20-3.40); #Monocytes 0.3 thou/uL (0.11-0.59); %Basophils 1.2 % (0.0-1.0); %Eosinophils 1.3 % (0.0-10.0); %Lymphocytes 23.9 % (21.0-51.0); %Monocytes 10.4 % (0.0-10.0); %Neutrophils 63.2 % (42.0-75.0); Hemoglobin 8.3 g/dL (12.0-16.0); Mean Corpuscular HGB CONC 32.5 g/dL (32.0-36.0); Mean Corpuscular Hemoglobin 29.6 pg (27.0-31.0); Mean Corpuscular Volume 91.2 fL (78.0-98.0); Mean Platelet Volume 7.6 fL (7.4-10.4); Platelet Count 46 thou/uL (130-400); RBC Distribution Width 15.8 % (11.5-14.5); Red Blood Cell (RBC) Count 2.82 mill/uL (4.20-5.40); White Blood Cell (WBC) Count 3.2 thou/uL (4.8-10.8)
[2021-12-04 16:24] LABS: ALT (SGPT) 13 U/L (8-55); AST (SGOT) 15 U/L (5-34); Albumin 3.2 g/dL (3.4-4.8); Alkaline Phosphatase 100 U/L (40-110); Anion Gap 12 mmol/L (10-20); BUN (Urea Nitrogen) 29 mg/dL (9.8-20.1); Bilirubin, Total 0.9 mg/dL (0.2-1.2); Calc. Creatinine Clearance 0 mL/min (70-130); Calcium 9.9 mg/dL (7.8-10.44); Carbon Dioxide 16 mmol/L (23-31); Chloride 119 mmol/L (98-107); Estimated GFR 34; Globulin 2.8 g/dL (2.4-3.5); Glucose 91 mg/dL (83-110); Magnesium 1.6 mg/dL (1.6-2.6); Potassium 4.3 mmol/L (3.5-5.1); Sodium 143 mmol/L (136-145)
[2021-12-04 16:34] LABS: Anisocytosis SLIGHT = 6-15 cells (100X) (0-5/hpf); Large Platelets SLIGHT; MDiff Complete? YES; Platelet Morphology Comment Appears Decreased; Poikilocytosis SLIGHT = 6-15 cells (100X) (0-5/hpf)
[2021-12-04 16:39] LABS: Bilirubin Negative (Negative); Blood, Urine Negative (Negative); Clarity Clear (Clear); Glucose, Urine (Dipstick) Negative (Negative); Ketone, Urine Negative (Negative); Leukocyte Negative (Negative); Nitrite Negative (Negative); Protein, Urine (Dipstick) Negative (Neg-Trace); Specific Gravity, Urine 1.015 (1.005-1.030); Urobilinogen 0.2 mg/dL (Less than 2)
[2021-12-04] MEDS ORDERED: metFORMIN 500 MG TAB PO SCH (21:30)
[2021-12-04] MEDS ORDERED: Potassium Chloride 20 MEQ TAB PO SCH (21:30)
[2021-12-04] MEDS ORDERED: Lisinopril 10 MG TAB PO SCH (21:30)
[2021-12-04] MEDS ORDERED: Atorvastatin Calcium 10 MG TAB PO SCH (21:30)
[2021-12-04] MEDS ORDERED: AcetaZOLAMIDE 250 MG TAB PO SCH (21:30)
== END 2021-12-04 23:30 ==
LOC: BURERS 15:09
DX: R53.1 Weakness (principal); E11.9 Type 2 diabetes mellitus without complications; J44.9 Chronic obstructive pulmonary disease, unspecified; Z79.84 Long term (current) use of oral hypoglycemic drugs; Z79.899 Other long term (current) drug therapy
CPT/HCPCS: 36415; 36416; 80053; 81003; 83605; 83735; 83880; 84484; 85025; 87086; 99285